=== PATIENT | female | born 1965 | race Caucasian/White ===

== ENCOUNTER 2017-06-19 13:15 | Emergency (ER) | payer OTHER ==
--- OUTSIDE RECORDS SUMMARY | 2017-06-19 14:42 | XMS REPORT ---
:1965 External Reference #:[id number] Author Organization [facility] Address [address] [place] [address] Phone [phone] Care Team Providers Name Role Lavonne Novoa MD Primary Care Physician Unavailable Payers Type Date Identification Numbers Payment Provider Subscriber Health Maintenance Policy Number: [id number] [place] Plan Claims [employer] Organization (HMO) PayID: [id number] [address] [place] [address] Problems Date Description Provider Status Onset: 11/22/2010 Hypothyroidism (Aquired) Lavonne Wilks MD Active Onset: 11/22/2010 Tobacco user Lavonne Wilks MD Active Onset: 08/12/2011 Infestation by Sarcoptes scabiei sukhdeep hominis Lavonne Wilks MD Active Onset: 11/05/2011 Disorder of skin Lavnone Wilks MD Active Onset: 05/30/2014 Candidiasis of mouth Lavonne Wilks MD Active Onset: 10/30/2014 Intra-abdominal and pelvic swelling, mass and Lavonne Wilks MD Active lump Family History Date Family Member(s) Problem(s) Comments Father due to Natural Causes () Father of melanoma invading thecolon and resulting in colon cancer..tx. by dr. nunez Mother copd,cardiomyopathy Social History Type Date Description Comments Cigarette Use Current Cigarette Smoker 1 1/2 Packs Daily ETOH Use Occasionally consumes beer Smoking Patient is a current smoker, smokes every day Allergies, Adverse Reactions, Alerts Date Description Reaction Status Severity Comments 03/05/2009 NKDA active Medications Medication Date Status Form Strength Qnty SIG Indications Ordering Provider [place] Nasal 03/03/ Active Solution 0.65% 66ml spray Lavonne Kent 2016 twice MD Lashaun daily to each nare Synthroid 06/17/ Active Tablets 150mcg 90tab 1 by Lavonne 2013 s mouth MD Lashaun every day on an empty stomach Ventolin HFA 02/03/ Active Aerosol 108(90Base 1unit 2 puff Elyn 2012 ) mcg/Act s four MD Lashaun times a day as needed Advair Diskus 12/09/ Active Aerosol 500-50mcg/ 3unit 1 puff Lavonne 2012 Dose s twice a MD Lashaun day Albuterol 12/09/ Active Nebulizer (2.5mg/3ML 75ml as Elyn Sulfate 2012 ) 0.083% gume Wilks MD four times a day prn. Nebulizer 12/09/ Active Misc 1unit as Elyn 2012 s MD yuriy Barrientos copd Nebulizer 12/09/ Active Device 2unit as Elyn Cup/Tubing 2012 s drlatha Wilks MD dx 496 Azithromycin 03/03/ Hx Tablets 500mg 5tabs 1 by Lavonne 2016 - mouth Ring, 06/10/ every day 2017 Levaquin 04/02/ Hx Tablets 500mg 10tab 1 by Lavonne 2015 - s mouth Ring, 07/22/ every day 2016 Prednisone 04/02/ Hx Tablets 20mg 5tabs 1 by Lavonne 2015 - mouth Ring, 07/22/ every day 2016 Nystatin 03/06/ Hx Suspension [id number] 240ml 1 Lavonne 2013 - /ML teaspoon MD Lashaun 04/02/ four 2016 times a day swish and swollow Levofloxacin 12/09/ Hx Tablets 500mg 10tab tab 1 po Lavonne 2012 - s q day MD Lashaun 2012 Prednisone 12/09/ Hx Tablets 20mg 5tabs 1 po qd Lavonne 2012 - Ring, 2012 Theophylline CR 12/09/ Hx Tablets ER 100mg 60tab Tab 1 PO Lavonne 2012 - 12HR s bid Lashaun, 2012 Nystatin/Triamc 11/04/ Hx Cream [id number] 30gm apply to Lavonne inolone 2012 - Unit/GM-% affected Lashaun, 12/15/ area bid 2012 prn Diflucan 11/04/ Hx Tablets 200mg 5tabs tab 1 po Ygyn 2011 - q day for Ring, 12/15/ 5 days 2012 Triamcinolone 08/12/ Hx Ointment 0.5% 60gm apply to Lavonne Acetonide 2012 - affected Ring, 11/04/ area bid 2011 Triamcinolone 08/11/ Hx Paste 0.1% 15gm apply to Elyn In Orabase 2012 - affected Ring, 08/12/ area tid 2011 Vivelle-Dot 12/16/ Hx Patches 0.05mg/24H 24uni apply 1 Lavonne 2010 - R ts patch MD Lashaun twice 2011 weekly Levaquin 11/22/ Hx Tablets 500mg 10tab 1 po qd Elyn 2010 - s Ring, 2011 Estraderm 09/26/ Hx Patches 0.05mg/24H 24uni apply 1 Lavonne 2010 - R ts patch Ring, twice 2010 weekly Venlafaxine HCL 08/12/ Hx Caps ER 24HR 37.5mg 90cap tab 1 po Elyn ER 2010 - s q day Lashaun, 2010 Amoxicillin 03/04/ Hx Tablets 500mg 30tab 1 po tid Lavonne 2009 - s MD Lashaun 2010 Lexapro 12/10/ Hx Tablets 10mg 90tab 1 po qd Lavonne 2010 - s MD Lashaun 2010 Estraderm 12/10/ Hx Patches 0.05mg/24H 24uni apply 1 Lavonne 2009 - R ts patch RingMD 2010 weekly Vitamin D-3 12/10/ Hx Tablets 2000Unit daily otc Ygyn Super Strength 2010 - RingMD 2015 Vitamin D-3 12/10/ Hx Tablets 2000Unit daily otc Elyn Super Strength 2010 - RingMD 2015 Amoxicillin 06/14/ Hx Capsules 500mg 30cap 1 po tid Lavonne 2010 - s x 10 days MD Lashaun 2009 Synthroid 03/05/ Hx Tablets 125mcg 90tab 1 po qd Lavonne 2008 - s MD Lashaun 2013 Immunizations CPT Code Status Date Vaccine Lot # [id number] Given 03/01/2009 Influenza Vaccine Vital Signs Date Vital Result Comment 06/10/2017 BP Systolic 152 mmHg BP Diastolic 80 mmHg Height 68 inches 5'8" Weight 173.00 lb BMI (Body Mass Index) 26.3 kg/m2 03/03/2017 BP Systolic 148 mmHg BP Diastolic 80 mmHg Heart Rate 78 /min Body Temperature 98.3 F Respiratory Rate 18 /min O2 % BldC Oximetry 90 % 01/20/2017 BP Systolic 138 mmHg BP Diastolic 70 mmHg Heart Rate 64 /min Respiratory Rate 20 /min Weight 172.00 lb 07/22/2016 BP Systolic 140 mmHg BP Diastolic 90 mmHg Height 68 inches 5'8" Weight 177.00 lb BMI (Body Mass Index) 26.9 kg/m2 04/02/2016 BP Systolic 142 mmHg BP Diastolic 78 mmHg Body Temperature 97.9 F 01/07/2016 BP Systolic 134 mmHg BP Diastolic 80 mmHg Height 68 inches 5'8" Weight 181.00 lb BMI (Body Mass Index) 27.5 kg/m2 05/17/2015 BP Systolic 164 mmHg BP Diastolic 90 mmHg Height 68 inches 5'8" Weight 197.00 lb BMI (Body Mass Index) 30.0 kg/m2 11/02/2014 BP Systolic 164 mmHg BP Diastolic 80 mmHg 10/30/2014 BP Systolic 138 mmHg BP Diastolic 80 mmHg 10/17/2014 BP Systolic 140 mmHg BP Diastolic 90 mmHg Height 68 inches 5'8" Weight 194.00 lb BMI (Body Mass Index) 29.5 kg/m2 05/30/2014 BP Systolic 132 mmHg BP Diastolic 80 mmHg 03/06/2014 BP Systolic 142 mmHg BP Diastolic 74 mmHg Height 68 inches 5'8" Weight 195.00 lb BMI (Body Mass Index) 29.6 kg/m2 08/09/2013 BP Systolic 132 mmHg BP Diastolic 90 mmHg Height 68 inches 5'8" Weight 198.00 lb BMI (Body Mass Index) 30.1 kg/m2 06/28/2013 BP Systolic 140 mmHg BP Diastolic 80 mmHg Height 68 inches 5'8" Weight 200.00 lb BMI (Body Mass Index) 30.4 kg/m2 12/15/2012 BP Systolic 120 mmHg BP Diastolic 80 mmHg 12/09/2012 BP Systolic 140 mmHg BP Diastolic 9 mmHg Body Temperature 98.7 F 11/05/2011 BP Systolic 130 mmHg BP Diastolic 74 mmHg Height 68 inches 5'8" Weight 181.00 lb BMI (Body Mass Index) 27.5 kg/m2 11/22/2010 BP Systolic 138 mmHg BP Diastolic 88 mmHg Height 68 inches 5'8" Weight 182.00 lb BMI (Body Mass Index) 27.7 kg/m2 08/12/2010 BP Systolic 128 mmHg BP Diastolic 86 mmHg Weight 185.00 lb 03/04/2010 BP Systolic 120 mmHg BP Diastolic 72 mmHg Weight 186.00 lb 12/10/2009 BP Systolic 132 mmHg BP Diastolic 84 mmHg Weight 179.00 lb 06/14/2009 BP Systolic 140 mmHg BP Diastolic 80 mmHg Body Temperature 99.0 F Weight 174.00 lb 04/09/2009 BP Systolic 130 mmHg BP Diastolic 90 mmHg Weight 184.00 lb 03/05/2009 BP Systolic 150 mmHg BP Diastolic 90 mmHg Weight 182.00 lb Results Test Date Test Result H/L Range Note Laboratory test finding 01/21/2017 BUN 11 mg/dL 7-18 Creatinine 0.8 mg/dL 0.6-1.3 Laboratory test finding 01/14/2017 Thyroid Stim Hormone 0.99 uIU/mL 0.30- 4.20 1 Free T4 1.19 ng/dL 0.76-1.46 1 Laboratory test finding 07/17/2016 Thyroid Stim Hormone 1.50 uIU/mL 0.30- 4.20 2 Free T4 1.11 ng/dL 0.76-1.46 2 CBC W/ Diff & PLT 07/17/2016 White Blood Count 4.7 K/uL 3.1-10.7 2 Red Blood Count 4.84 M/uL 3.90-5.40 2 Hemoglobin 15.8 gm/dL 11.6-15.8 2 Hematocrit 45.7 % 36.0-46.1 2 Mean Cell Volume 94.4 fl 80.9-99.0 2 Mean Corpuscular HGB 32.6 pg 25.9-32.7 2 Mean Corpuscular HGB Conc 34.6 g/dL High 30.8-34.3 2 Platelet Count 277 K/uL 150-400 2 Red Cell Distri Width SD 42.3 fl 3-47 2 Red Cell Distri Width %CV 12.5 % 11.7-14.4 2 Mean Platelet Volume 11.3 fL 8.9-12.4 2 Neut% 51.4 % 40.4-72.8 2 Lymph % 31.1 % 20.0-42.0 2 Kay % 7.8 % 4.3-13.2 2 Eo% 9.1 % High 0.0-6.6 2 Bas% 0.6 % 0.0-1.1 2 Neut# 2.43 K/uL 1.8-7.0 2 Lymph # 1.47 K/uL 1.0-4.0 2 Kay # 0.37 K/uL 0.3-0.9 2 Eos # 0.43 K/uL 0.0-0.5 2 Baso # 0.03 K/uL 0.0-0.1 2 Basic Metabolic Panel 07/17/2016 Glucose 87 mg/dL 74-106 2 BUN 11 mg/dL 7-18 2 Creatinine 0.8 mg/dL 0.6-1.3 2 Glom Filtration Rate, Estimate >60 mL/min >60 2 If >60 mL/min >60 2, 3 BUN/Creat 13.7 ratio 2 Sodium 142 mmol/L 136-145 2 Potassium 4.3 mmol/L 3.5-5.1 2 Chloride 107 mmol/L 98-107 2 Carbon Dioxide 28 mmol/L 21-32 2 Anion Gap 7 mEq/L Low 8-16 2 Calcium 8.5 mg/dL 8.5-10.1 2 CBC W/Automated Diff 12/27/2015 White Blood Count 5.6 K/uL 3.1-10.7 Red Blood Count 5.27 M/uL 3.90-5.40 Hemoglobin 16.6 gm/dL High 11.6-15.8 Hematocrit 49.2 % High 36.0-46.1 Mean Cell Volume 93.4 fl 80.9-99.0 Mean Corpuscular HGB 31.5 pg 25.9-32.7 Mean Corpuscular HGB Conc 33.7 g/dL 30.8-34.3 Platelet Count 227 K/uL 155-360 Red Cell Distri Width SD 43.7 fl 3-47 Red Cell Distri Width %CV 13.0 % 11.7-14.4 Mean Platelet Volume 11.7 fL 8.9-12.4 Neut% 62.2 % 40.4-72.8 Lymph % 24.0 % 17.0-46.1 Kay % 9.5 % 4.3-13.2 Eo% 3.6 % 0.0-6.6 Bas% 0.7 % 0.0-1.1 Neut# 3.45 K/uL 1.8-7.0 Lymph # 1.33 K/uL Low 1.8-7.0 Kay # 0.53 K/uL 0.3-0.9 Eos # 0.20 K/uL 0.0-0.5 Baso # 0.04 K/uL 0.0-0.1 Liver Function Tests 12/27/2015 Total Protein 7.3 g/dL 6.4-8.2 Albumin 3.6 g/dL 3.4-5.0 Globulin 3.7 g/dL 1.9-4.3 Alb/Glob 1.0 ratio Bilirubin,Total 0.6 mg/dL 0.2-1.0 Bilirubin,Direct 0.2 mg/dL 0.0-0.2 Bilirubin,Indirect 0.4 mg/dL 0.0-0.9 Sgot/Ast 18 U/L 15-37 SGPT/Alt 32 U/L 12-78 Alkaline Phosphatase 74 U/L 45-117 Comprehensive Metabolic Panel 12/27/2015 Glucose 91 mg/dL 74-106 BUN 8 mg/dL 7-18 Creatinine 0.8 mg/dL 0.6-1.3 Glom Filtration Rate, Estimate >60 mL/min >60 If >60 mL/min >60 4 BUN/Creat 10.0 ratio Sodium 142 mmol/L 136-145 Potassium 4.2 mmol/L 3.5-5.1 Chloride 108 mmol/L High 98-107 Carbon Dioxide 29 mmol/L 21-32 Anion Gap 5 mEq/L Low 8-16 Calcium 8.6 mg/dL 8.5-10.1 Total Protein 7.3 g/dL 6.4-8.2 Albumin 3.6 g/dL 3.4-5.0 Globulin 3.7 g/dL 1.9-4.3 Alb/Glob 1.0 ratio Bilirubin,Total 0.6 mg/dL 0.2-1.0 Sgot/Ast 18 U/L 15-37 SGPT/Alt 32 U/L 12-78 Alkaline Phosphatase 74 U/L 45-117 LDL Cholesterol Profile 12/27/2015 Cholesterol 177 mg/dL <200 5 Triglycerides 55 mg/dL <150 6 HDL Cholesterol 63 mg/dL >40 7 LDL-Cholesterol 103 mg/dL < 100 8 Laboratory test finding 12/27/2015 Thyroid Stim Hormone 0.40 uIU/mL 0.30- 4.20 Free T4 1.17 ng/dL 0.76-1.46 Laboratory test finding 07/21/2015 Wound/Misc Culture-Gram SEE RESULT BELOW 9 Stain Viral Culture Respiratory See Comment 10 Comprehensive Metabolic Panel 09/26/2014 Glucose 105 mg/dL 74-106 BUN 10 mg/dL 7-18 Creatinine 0.9 mg/dL 0.6-1.3 Glom Filtration Rate, Estimate >60 mL/min >60 If >60 mL/min >60 11 BUN/Creat 11.1 ratio Sodium 138 mmol/L 136-145 Potassium 4.6 mmol/L 3.5-5.1 Chloride 104 mmol/L 98-107 Carbon Dioxide 30 mmol/L 21-32 Anion Gap 4 mEq/L Low 8-16 Calcium 9.3 mg/dL 8.5-10.1 Total Protein 7.2 g/dL 6.4-8.2 Albumin 3.6 g/dL 3.4-5.0 Globulin 3.6 g/dL 1.9-4.3 Alb/Glob 1.0 ratio Bilirubin,Total 0.2 mg/dL 0.2-1.0 Sgot/Ast 15 U/L 15-37 SGPT/Alt 24 U/L 12-78 Alkaline Phosphatase 71 U/L 45-117 LDL Cholesterol Profile 09/26/2014 Cholesterol 184 mg/dL < 200 12 Triglycerides 63 mg/dL < 150 13 HDL Cholesterol 66 mg/dL > 40 14 LDL-Cholesterol 105 mg/dL < 100 15 CBS W/Automated Diff 09/26/2014 White Blood Count 5.7 K/uL 3.1-10.7 Red Blood Count 4.92 M/uL 3.90-5.40 Hemoglobin 15.6 gm/dL 11.6-15.8 Hematocrit 46.7 % High 36.0-46.1 Mean Cell Volume 94.9 fl 80.9-99.0 Mean Corpuscular HGB 31.7 pg 25.9-32.7 Mean Corpuscular HGB Conc 33.4 g/dL 30.8-34.3 Platelet Count 263 K/uL 155-360 Red Cell Distri Width SD 44.1 fl 3-47 Red Cell Distri Width %CV 13.1 % 11.7-14.4 Mean Platelet Volume 11.3 fL 8.9-12.4 Neut% 62.3 % 40.4-72.8 Lymph % 25.3 % 17.0-46.1 Kay % 7.9 % 4.3-13.2 Eo% 4.0 % 0.0-6.6 Bas% 0.5 % 0.0-1.1 Neut# 3.55 K/uL 1.0-7.0 Lymph # 1.44 K/uL Low 1.8-7.0 Kay # 0.45 K/uL 0.3-0.9 Eos # 0.23 K/uL 0.0-0.5 Baso # 0.03 K/uL 0.0-0.1 TSH+Free T4 ([place] & 09/26/2014 Thyroid Stim Hormone 0.47 uIU/mL 0.36-3.74 [facility]) Free T4 1.17 ng/dL 0.76-1.46 Laboratory test finding 09/26/2014 Bilirubin,Direct < 0.1 mg/dL 0.0- 0.2 Comp Metabolic Panel 08/07/2014 Sodium 136 mmol/L 133-145 Potassium 4.9 mmol/L 3.5-5.0 Chloride 103 mmol/L 101-111 Co2 Carbon Dioxide 29 mmol/L 22-32 Anion Gap 4 mmol/L 2-11 Glucose 92 mg/dL 70-100 Blood Urea Nitrogen 12 mg/dL 6-24 Creatinine 0.76 mg/dL 0.51-0.95 BUN/Creatinine Ratio 15.8 8-20 Calcium 9.9 mg/dL 8.6-10.3 Total Protein 6.9 g/dL 6.4-8.9 Albumin 4.3 g/dL 3.2-5.2 Globulin 2.6 g/dL 2-4 Albumin/Globulin Ratio 1.7 1-3 Total Bilirubin 0.50 mg/dL 0.2-1.0 Alkaline Phosphatase 66 U/L 34-104 Alt 21 U/L 7-52 Ast 20 U/L 13-39 Egfr Non- 80.2 >60 Egfr 103.2 >60 16 Laboratory test finding 08/07/2014 C Reactive Protein 3.09 mg/L < 5.00 17 CBC Auto Diff 08/07/2014 White Blood Count 7.3 10^3/uL 4.8-10.8 Red Blood Count 4.86 10^6/uL 4.0-5.4 Hemoglobin 15.9 g/dL 12.0-16.0 Hematocrit 47 % 35-47 Mean Corpuscular Volume 97 fL 80-97 Mean Corpuscular Hemoglobin 33 pg High 27-31 Mean Corpuscular HGB Conc 34 g/dL 31-36 Red Cell Distribution Width 13 % 10.5-15 Platelet Count 278 10^3/uL 150-450 Mean Platelet Volume 10 um3 7.4-10.4 Abs Neutrophils 4.7 10^3/uL 1.5-7.7 Abs Lymphocytes 1.7 10^3/uL 1.0-4.8 Abs Monocytes 0.5 10^3/uL 0-0.8 Abs Eosinophils 0.3 10^3/uL 0-0.6 Abs Basophils 0.1 10^3/uL 0-0.2 Abs Nucleated RBC 0 10^3/uL Granulocyte % 65.1 % 38-83 Lymphocyte % 22.9 % Low 25-47 Monocyte % 7.1 % 1-9 Eosinophil % 4.2 % 0-6 Basophil % 0.7 % 0-2 Nucleated Red Blood Cells % 0.1 Laboratory test finding 08/07/2014 Erythrocyte Sed Rate 15 mm/Hr 0-30 Radha (Anti-Nuclear AB) Screen Negative Negative Laboratory test finding 01/05/2014 Polyp Colon And/Or Rectum See Note 18 CBC W/ Diff & PLT 08/03/2013 White Blood Count 6.8 K/uL 3.1-10.7 Red Blood Count 5.18 M/uL 3.90-5.40 Hemoglobin 16.5 gm/dL High 11.6-15.8 Hematocrit 48.2 % High 36.0-46.1 Mean Cell Volume 93.1 fl 80.9-99.0 Mean Corpuscular HGB 31.9 pg 25.9-32.7 Mean Corpuscular HGB Conc 34.2 g/dL 30.8-34.3 Platelet Count 260 K/uL 155-360 Red Cell Distri Width SD 43.0 fl 3-47 Red Cell Distri Width %CV 12.7 % 11.7-14.4 Mean Platelet Volume 10.7 fL 8.9-12.4 Neut% 62.8 % 40.4-72.8 Lymph % 24.3 % 17.0-46.1 Kay % 7.2 % 4.3-13.2 Eo% 5.1 % 0.0-6.6 Bas% 0.6 % 0.0-1.1 Neut# 4.30 K/uL 1.0-7.0 Lymph # 1.66 K/uL 0.8-3.4 Kay # 0.49 K/uL 0.3-0.9 Eos # 0.35 K/uL 0.0-0.5 Baso # 0.04 K/uL 0.0-0.1 LDL Cholesterol Profile 08/03/2013 Cholesterol 211 mg/dL High 120-200 Triglycerides 67 mg/dL 16-231 HDL Cholesterol 82 mg/dL 29-83 LDL-Cholesterol 116 mg/dL 62-185 Laboratory test finding 08/03/2013 Liver Function Tests See Note 19 Vitamin D,25-Hydroxy 10.7 ng/mL Low 30.0-100.0 20 Comprehensive Metabolic Panel 08/03/2013 Glucose 85 mg/dL 76-115 BUN 12 mg/dL 5-23 Creatinine 0.9 mg/dL 0.5-1.4 Glom Filtration Rate, Estimate >60 mL/min >60 If >60 mL/min >60 21 BUN/Creat 13.3 ratio Sodium 140 mmol/L 136-145 Potassium 4.8 mmol/L 3.5-5.1 Chloride 104 mmol/L 98-107 Carbon Dioxide 29 mEq/L 18-29 Anion Gap 12 mEq/L 8-16 Calcium 9.3 mg/dL 8.5-10.1 Total Protein 7.7 g/dL 6.3-8.0 Albumin 4.0 g/dL 3.5-5.0 Globulin 3.7 g/dL 1.9-4.3 Alb/Glob 1.1 ratio Bilirubin,Total 0.4 mg/dL 0.2-1.2 Sgot/Ast 18 U/L 16-40 SGPT/Alt 27 U/L Low 30-65 Alkaline Phosphatase 76 U/L 50-136 Laboratory test finding 08/03/2013 Thyroxine (T4) See Note 22 Thyroid Stim Hormone 1.24 uIU/mL 0.49-4.67 23 Bilirubin,Direct 0.1 mg/dL 0.1-0.4 24 Free T4 1.05 ng/dL 0.71-1.85 25 Basic Metabolic Panel 06/16/2013 Glucose 91 mg/dL 76-115 BUN 13 mg/dL 5-23 Creatinine 1.0 mg/dL 0.5-1.4 Glom Filtration Rate, Estimate >60 mL/min >60 If >60 mL/min >60 26 BUN/Creat 13.0 ratio Sodium 137 mmol/L 136-145 Potassium 4.5 mmol/L 3.5-5.1 Chloride 103 mmol/L 98-107 Carbon Dioxide 30 mEq/L High 18-29 Anion Gap 9 mEq/L 8-16 Calcium 9.2 mg/dL 8.5-10.1 CBC W/ Diff & PLT 06/16/2013 White Blood Count 6.1 K/uL 3.1-10.7 Red Blood Count 4.93 M/uL 3.90-5.40 Hemoglobin 16.0 gm/dL High 11.6-15.8 Hematocrit 45.8 % 36.0-46.1 Mean Cell Volume 92.9 fl 80.9-99.0 Mean Corpuscular HGB 32.5 pg 25.9-32.7 Mean Corpuscular HGB Conc 34.9 g/dL High 30.8-34.3 Platelet Count 301 K/uL 155-360 Red Cell Distri Width SD 45.1 fl 3-47 Red Cell Distri Width %CV 13.5 % 11.7-14.4 Mean Platelet Volume 11.2 fL 8.9-12.4 Neut% 60.3 % 40.4-72.8 Lymph % 23.9 % 17.0-46.1 Kay % 8.7 % 4.3-13.2 Eo% 6.3 % 0.0-6.6 Bas% 0.8 % 0.0-1.1 Neut# 3.65 K/uL 1.0-7.0 Lymph # 1.45 K/uL 0.8-3.4 Kay # 0.53 K/uL 0.3-0.9 Eos # 0.38 K/uL 0.0-0.5 Baso # 0.05 K/uL 0.0-0.1 Laboratory test finding 06/16/2013 Thyroid Stim Hormone 21.50 uIU/mL High 0.49-4.67 Free T4 0.78 ng/dL 0.71-1.85 Basic Metabolic Panel 05/03/2012 Glucose 88 mg/dL 76-115 BUN 16 mg/dL 5-23 Creatinine 0.9 mg/dL 0.5-1.4 Glom Filtration Rate, Estimate >60 mL/min >60 If >60 mL/min >60 27 BUN/Creat 17.7 ratio Sodium 140 mmol/L 136-145 Potassium 4.4 mmol/L 3.5-5.1 Chloride 106 mmol/L 98-107 Carbon Dioxide 29 mEq/L 18-29 Anion Gap 9 mEq/L 8-16 Calcium 9.0 mg/dL 8.5-10.1 CBS W/Automated Diff 05/03/2012 White Blood Count 6.6 K/uL 3.1-10.7 Red Blood Count 4.66 M/uL 3.90-5.40 Hemoglobin 14.9 gm/dL 11.6-15.8 Hematocrit 43.4 % 36.0-46.1 Mean Cell Volume 93.1 fl 80.9-99.0 Mean Corpuscular HGB 32.0 pg 25.9-32.7 Mean Corpuscular HGB Conc 34.3 g/dL 30.8-34.3 Platelet Count 276 K/uL 155-360 Red Cell Distri Width SD 44.0 fl 3-47 Red Cell Distri Width %CV 13.2 % 11.7-14.4 Mean Platelet Volume 11.3 fL 8.9-12.4 Neut% 56.9 % 40.4-72.8 Lymph % 24.9 % 17.0-46.1 Kay % 6.7 % 4.3-13.2 Eo% 10.7 % High 0.0-6.6 Bas% 0.8 % 0.0-1.1 Neut# 3.73 K/uL 1.0-7.0 Lymph # 1.63 K/uL 0.8-3.4 Kay # 0.44 K/uL 0.3-0.9 Eos # 0.70 K/uL High 0.0-0.5 Baso # 0.05 K/uL 0.0-0.1 TSH+Free T4 ([place] 05/03/2012 Thyroid Stim Hormone 5.41 uIU/mL High 0.49-4.67 & [facility]) Free T4 1.16 ng/dL 0.71-1.85 Laboratory test finding 06/05/2010 Thyroid Stim Hormone 6.15 uIU/mL High 0.49-4.67 28 Free T3 2.07 pg/mL 1.45-3.48 29 Free T4 1.17 ng/dL 0.71-1.85 30 CBC 06/05/2010 White Blood Count 8.2 K/uL 3.1-10.7 Red Blood Count 4.86 M/uL 3.90-5.40 Hemoglobin 15.6 gm/dL 11.6-15.8 Hematocrit 46.2 % High 36.0-46.1 Mean Cell Volume 95.1 fl 80.9-99.0 Mean Corpuscular HGB 32.1 pg 25.9-32.7 Mean Corpuscular HGB Conc 33.8 g/dL 30.8-34.3 Platelet Count 270 K/uL 155-360 Red Cell Distri Width %CV 12.9 % 11.7-14.4 Mean Platelet Volume 11.1 fL 8.9-12.4 Laboratory test finding 06/05/2010 Vitamin D,25-Hydroxy 15.3 ng/mL Low 32.0-100.0 31 LDL Cholesterol Profile 06/05/2010 Cholesterol 200 mg/dL 120-200 Triglycerides 57 mg/dL 0-210 HDL Cholesterol 79 mg/dL 32-96 LDL-Cholesterol 110 mg/dL 62-185 Comprehensive Metabolic Panel 06/05/2010 Glucose 94 mg/dL 76-115 BUN 9 mg/dL 5-23 Creatinine 0.8 mg/dL 0.5-1.4 Glom Filtration Rate, Estimate >60 mL/min >60 If >60 mL/min >60 32 BUN/Creat 11.2 Sodium 136 mEq/L 136-145 Potassium 4.3 mEq/L 3.5-5.1 Chloride 99 mEq/L 98-107 Carbon Dioxide 29 mEq/L 21-32 Anion Gap 12 mEq/L 8-16 Calcium 8.6 mg/dL 8.5-10.1 Total Protein 7.9 g/dL 6.3-8.0 Albumin 4.1 g/dL 3.5-5.0 Globulin 3.8 gm/dL 1.9-4.3 Alb/Glob 1.1 Bilirubin,Total 0.4 mg/dL 0.2-1.2 Sgot/Ast 18 U/L 16-40 SGPT/Alt 35 U/L 30-65 Alkaline Phosphatase 114 U/L 50-136 Liver Function Tests 06/05/2010 Total Protein 7.9 g/dL 6.3-8.0 Albumin 4.1 g/dL 3.5-5.0 Bilirubin,Total 0.4 mg/dL 0.2-1.2 Bilirubin,Direct 0.1 mg/dL 0.1-0.4 Bilirubin,Indirect 0.3 mg/dL 0.0-0.9 Sgot/Ast 18 U/L 16-40 SGPT/Alt 35 U/L 30-65 Alkaline Phosphatase 114 U/L 50-136 Globulin 3.8 gm/dL 1.9-4.3 Alb/Glob 1.1 Laboratory test finding 06/14/2009 Urine Culture See Note 33 TSH+Free T4 ([place] 06/14/2009 Thyroid Stim Hormone 5.52 uIU/mL High 0.49-4.67 & [facility]) Free T4 1.24 ng/dL 0.71-1.85 Laboratory test finding 06/14/2009 Free T3 2.32 pg/mL 1.45-3.48 CBC 06/14/2009 White Blood Count 8.1 K/uL 3.1-10.7 Red Blood Count 4.32 M/uL 3.90-5.40 Hemoglobin 12.7 gm/dL 11.6-15.8 Hematocrit 38.1 % 36.0-46.1 Mean Cell Volume 88.2 fl 80.9-99.0 Mean Corpuscular HGB 29.4 pg 25.9-32.7 Mean Corpuscular HGB Conc 33.3 g/dL 30.8-34.3 Platelet Count 364 K/uL High 155-360 Red Cell Distri Width %CV 15.2 % High 11.7-14.4 Mean Platelet Volume 10.7 fL 8.9-12.4 CBC 05/13/2009 White Blood Count 7.9 K/uL 3.1-10.7 Red Blood Count 2.87 M/uL Low 3.90-5.40 Hemoglobin 8.7 gm/dL Low 11.6-15.8 Hematocrit 26.5 % Low 36.0-46.1 Mean Cell Volume 92.3 fl 80.9-99.0 Mean Corpuscular HGB 30.3 pg 25.9-32.7 Mean Corpuscular HGB Conc 32.8 g/dL 30.8-34.3 Platelet Count 723 K/uL High 155-360 Red Cell Distri Width %CV 14.1 % 11.7-14.4 Mean Platelet Volume 9.7 fL 8.9-12.4 Differential-WBC 05/13/2009 Total Cells Counted 100 #CELLS Band% 1 % 0-8 Neutrophils% 73 % 33-73 Lymph% 10 % Low 17-56 Monocyte% 4 % 0-10 Eosinophil% 10 % High 0-5 Basophil% 2 % 0-2 Platelet Estimate MARKED INCREASE RBC Morphology NORMAL Hypochromia 1+ Basic Metabolic Panel 05/13/2009 Glucose 87 mg/dL 76-115 BUN 4 mg/dL Low 5-23 Creatinine 0.7 mg/dL 0.5-1.4 Glom Filtration Rate, Estimate >60 mL/min >60 If >60 mL/min >60 34 BUN/Creat 5.7 Sodium 142 mEq/L 136-145 Potassium 3.2 mEq/L Low 3.5-5.1 Chloride 105 mEq/L 98-107 Carbon Dioxide 30 mEq/L 21-32 Anion Gap 10 mEq/L 8-16 Calcium 8.9 mg/dL 8.5-10.1 Laboratory test 05/12/2009 Type And Screen Canceled By Lab 35 finding Anaerobic Culture W/ 05/12/2009 Gram Stain; Anaerobic <see comment> 36, 37 GR Stain Specimen Anaerobic Culture <see comment> 36, 38 Routine Culture W/ Gram 05/12/2009 Gram Stain GRAM STAIN <SEE 36, 39 Stain NOTE> Aerobic Culture Organism 1 <SEE NOTE> 36, 40 Type And Screen 05/12/2009 Patient Blood Type B POS Antibody Screen NEGATIVE Laboratory test finding 05/12/2009 CBS W/Automated Diff Canceled By Lab 41 Blood Culture 05/12/2009 Blood Culture Aerobic See Note 42, 43 Blood Culture Anaerobic See Note 42, 44 Laboratory test 05/12/2009 Blood Culture Canceled By Lab 42, 45 finding Laboratory test 05/02/2009 C. Difficile Toxin <see 46 finding A/B comment> CBC 05/01/2009 White Blood Count 9.3 K/uL 3.1-10.7 Red Blood Count 3.15 M/uL Low 3.90-5.40 Hemoglobin 9.6 gm/dL Low 11.6-15.8 Hematocrit 29.9 % Low 36.0-46.1 Mean Cell Volume 94.9 fl 80.9-99.0 Mean Corpuscular HGB 30.5 pg 25.9-32.7 Mean Corpuscular HGB Conc 32.1 g/dL 30.8-34.3 Platelet Count 268 K/uL 155-360 Red Cell Distri Width %CV 12.6 % 11.7-14.4 Mean Platelet Volume 11.7 fL 8.9-12.4 Laboratory test finding 04/30/2009 Uterus W/Wo FT/Ovary-Fibroid (SEE NOTE) 47 Type And Screen 04/25/2009 Patient Blood Type B POS Antibody Screen NEGATIVE Basic Metabolic Panel 04/25/2009 Glucose 83 mg/dL 76-115 BUN 11 mg/dL 5-23 Creatinine 0.9 mg/dL 0.5-1.4 Glom Filtration Rate, Estimate >60 mL/min >60 If >60 mL/min >60 48 BUN/Creat 12.2 Sodium 135 mEq/L Low 136-145 Potassium 4.0 mEq/L 3.5-5.1 Chloride 104 mEq/L 98-107 Carbon Dioxide 23 mEq/L 21-32 Anion Gap 12 mEq/L 8-16 Calcium 8.8 mg/dL 8.5-10.1 Laboratory test finding 04/25/2009 HCG Serum, Qualitative NEGATIVE Urine Screen Canceled By Lab 49 CBC 04/25/2009 White Blood Count 5.5 K/uL 3.1-10.7 Red Blood Count 3.77 M/uL Low 3.90-5.40 Hemoglobin 12.1 gm/dL 11.6-15.8 Hematocrit 35.5 % Low 36.0-46.1 Mean Cell Volume 94.2 fl 80.9-99.0 Mean Corpuscular HGB 32.1 pg 25.9-32.7 Mean Corpuscular HGB Conc 34.1 g/dL 30.8-34.3 Platelet Count 346 K/uL 155-360 Red Cell Distri Width %CV 12.9 % 11.7-14.4 Mean Platelet Volume 10.9 fL 8.9-12.4 Urinalysis With Microscopic 04/25/2009 Urine Color YELLOW Yellow Urine Clarity CLEAR Clear Urine Glucose - Dipstick NEGATIVE mg/dL Negative Urine Bilirubin - Dipstick NEGATIVE Negative Urine Ketone NEGATIVE mg/dL Negative Urine Specific [place] 1.010 1.010-1.030 Urine Blood MODERATE High Negative Urine PH 5.0 Low 6.5-7.5 Urine Protein - Dipstick NEGATIVE mg/dL Negative Urine Urobilinogen - Dipstick 0.2 E.U./dL 0.2-1.0 Urine Nitrite - Dipstick NEGATIVE Negative Urine Leuk Esterase TRACE High Negative Urine RBC 0-2 rbc/hpf 0-7 Urine WBC 0-2 wbc/hpf 0-7 Urine Epithelial Cells FEW NONESEEN Urine Bacteria VERY FEW NONESEEN Urine Amorph Sediment SMALL Negative Laboratory test finding 04/02/2009 Thyroid Stim Hormone 9.51 uIU/mL High 0.49-4.67 Free T3 1.72 pg/mL 1.45-3.48 Free T4 1.08 ng/dL 0.71-1.85 Basic Metabolic Panel 04/02/2009 Glucose 83 mg/dL 76-115 BUN 6 mg/dL 5-23 Creatinine 0.8 mg/dL 0.5-1.4 Glom Filtration Rate, Estimate >60 mL/min >60 If >60 mL/min >60 50 BUN/Creat 7.5 Sodium 134 mEq/L Low 136-145 Potassium 4.2 mEq/L 3.5-5.1 Chloride 105 mEq/L 98-107 Carbon Dioxide 26 mEq/L 21-32 Anion Gap 7 mEq/L Low 8-16 Calcium 8.8 mg/dL 8.5-10.1 LDL Cholesterol Profile 04/02/2009 Cholesterol 176 mg/dL 120-200 Triglycerides 80 mg/dL 0-210 HDL Cholesterol 54 mg/dL 32-96 LDL-Cholesterol 106 mg/dL 62-185 1 E03.9 2 E03.9 J20.9 I1.9 3 Note: Persistent reduction for 3 months or more in an eGFR <60 mL/min/1.73 m2 defines CKD. Patients with eGFR values >/=60 mL/min/1.73 m2 may also have CKD if evidence of persistent proteinuria is present. The original MDRD equation for estimated GFR is not valid for patients less than 18 years of age. Additional information may be found at www.[email or web address]. 4 Note: Persistent reduction for 3 months or more in an eGFR <60 mL/min/1.73 m2 defines CKD. Patients with eGFR values >/=60 mL/min/1.73 m2 may also have CKD if evidence of persistent proteinuria is present. The original MDRD equation for estimated GFR is not valid for patients less than 18 years of age. Additional information may be found at www.[email or web address]. 5 Reference Guidelines*: Desirable: ........... < 200 mg/dL Borderline High: ..... 200-239 mg/dL High: ................ >=240 mg/dL * The National Cholesterol Education Program (NCEP) 6 Reference Guidelines*: Normal: ............. < 150 mg/dL Borderline High: .... 150-199 mg/dL High: ............... 200-499 mg/dL Very High: .......... > 500 mg/dL * Source: National Cholesterol Education Program (NCEP) 7 Reference Guidelines*: Low HDL: ..... < 40 mg/dL Normal: ..... 40-60 mg/dL Desirable: ... > 60 mg/dL *The National Cholesterol Education Program(NCEP) 8 Reference Guidelines*: Optimal:........... <100 mg/dL Near Optimal....... 100-129 mg/dL Borderline High.... 130-159 mg/dL High............... 160-189 mg/dL Very High.......... >=190 mg/dL * Source: National Cholesterol Education Program (NCEP) 9 SEE RESULT BELOW Name: ROJELIO NEWTON : [address]: Pro Montalvo MD Acct: [id number] Unit: [id number] AGE: 50 Location: [facility] Re07/21/15 SEX: F Status: DEP ER SPEC: [id number] YAO: 07/21/15-1723 [facility] DR: Ami Mcgarry NP REQ: [id number] RECD: 07/22/15 STATUS: MARIAJOSE COX DR: Lavonne Montalvo MD _ SOURCE: MOUTH SPDESC: ORDERED: Culture Stain QUERIES: Specimen Description MOUTH Procedure Result Reported Site Wound/Misc Gram Stain Final 07/22/15- 1436 ML 4+ Epithelial Cells No Neutrophils Observed 4+ Gram Positive Cocci 4+ Gram Positive Bacilli Wound/Misc Culture Final 07/24/15- 1004 ML Organism 1 NORMAL DELORES Quantity 3+ * ML - MAIN LAB ([facility]) . END OF REPORT * ML=Testing performed at Main Lab DEPARTMENT OF PATHOLOGY, [address] [place] [address] Sg Dennis M.D. Director [facility] # [id number] 10 SOURCE: MOUTH, MOUTH SWAB VIRAL CULTURE, RESPIRATORY FINAL No virus isolated. Test Performed by: [place] [address] Silverware Washer: No Amaya II, M.D., Ph.D. 11 Note: Persistent reduction for 3 months or more in an eGFR <60 mL/min/1.73 m2 defines CKD. Patients with eGFR values >/=60 mL/min/1.73 m2 may also have CKD if evidence of persistent proteinuria is present. The original MDRD equation for estimated GFR is not valid for patients less than 18 years of age. Additional information may be found at www.[email or web address]. 12 Reference Guidelines*: Desirable: ........... < 200 mg/dL Borderline High: ..... 200-239 mg/dL High: ................ >=240 mg/dL * The National Cholesterol Education Program (NCEP) 13 Reference Guidelines*: Normal: ............. < 150 mg/dL Borderline High: .... 150-199 mg/dL High: ............... 200-499 mg/dL Very High: .......... > 500 mg/dL * Source: National Cholesterol Education Program (NCEP) 14 Reference Guidelines*: Low HDL: ..... < 40 mg/dL Normal: ..... 40-60 mg/dL Desirable: ... > 60 mg/dL *The National Cholesterol Education Program(NCEP) 15 Reference Guidelines*: Optimal:........... <100 mg/dL Near Optimal....... 100-129 mg/dL Borderline High.... 130-159 mg/dL High............... 160-189 mg/dL Very High.......... >=190 mg/dL * Source: National Cholesterol Education Program (NCEP) 16 Because ethnic data is not always readily available, this report includes an eGFR for both -Americans and non- Americans. The National Kidney Disease Education Program (NKDEP) does not endorse the use of the MDRD equation for patients that are not between the ages of 18 and 70, are , have extremes of body size, muscle mass, or nutritional status, or are non- or non-. According to the National Kidney Foundation, irrespective of diagnosis, the stage of the disease is based on the level of kidney function: Stage Description GFR(mL/min/1.73 m(2)) 1 Kidney damage with normal or decreased GFR 90 2 Kidney damage with mild decrease in GFR 60-89 3 Moderate decrease in GFR 30-59 4 Severe decrease in GFR 15-29 5 Kidney failure <15 (or dialysis) 17 Acute inflammation: >10.00 18 OPERATION/PROCEDURE Colon. DIAGNOSIS: PART 1: "SIGMOID COLON, BIOPSY": COLITIS, MILD TO MODERATE, WITH CRYPTITIS. PART 2: "RECTAL POLYP, BIOPSY": TUBULAR ADENOMA. KEVIN/kwabena 1134 GROSS Part 1; "SIGMOID BIOPSY". The specimen is received in an appropriately labeled container. This contains six rounded hernandez brown colored pieces of soft tissue measuring up to 0.3 cm.; filtered and submitted in toto within a single cassette. Part 2; "RECTAL POLYP". The specimen is received in an appropriately labeled container. This contains one rounded brown colored piece of soft tissue measuring up to 1.1 cm.; filtered and submitted in toto within a single cassette. HW/kwabena MICROSCOPIC Part 1: Sections reveal markedly inflamed colonic mucosa with hemorrhage, and acute and chronic inflammation. Inflammatory cells surround and infiltrate individual glands. The glands are shortened, angularly distorted, with markedly increased crypt mitotic activity. Reactive atypia is seen. Crypt abscesses are not seen. Part 2: Sections show colonic mucosa with tubular glands lined by columnar cells with elongated and hyperchromatic nuclei. PRE OPERATIVE DIAGNOSIS F/H ca colon; bleed REVIEW CODE CODE: I Signed Electronically signed RALPH SOUTH MD 01/09/14 1354 19 08/03/13 LAB.ALL LFT CHANGED TO DBILI 20 Vitamin D deficiency has been defined by the [place] [employer] and an Endocrine Society practice guideline as a level of serum 25-OH vitamin D less than 20 ng/mL (1,2). The Endocrine Society went on to further define vitamin D insufficiency as a level between 21 and 29 ng/mL (2). 1. IOM ([place] [employer]). 2010. Dietary reference intakes for calcium and D. [place]: The National Academies Press. 2. Yen MF, Giorgi NC, Sarah PAUL, et al. Evaluation, treatment, and prevention of vitamin D deficiency: an Endocrine Society clinical practice guideline. JCEM. 2010; 96(7):1911-30. Performed at: RN - [facility] [id number] Underwriting Director: Ann Marie Keen MD, Phone: [phone] 21 Note: Persistent reduction for 3 months or more in an eGFR <60 mL/min/1.73 m2 defines CKD. Patients with eGFR values >/=60 mL/min/1.73 m2 may also have CKD if evidence of persistent proteinuria is present. The original MDRD equation for estimated GFR is not valid for patients less than 18 years of age. Additional information may be found at www.[email or web address]. 22 08/03/13 LAB.ALL T4 WAS SUPPOSED TO BE FT4 23 T4 WAS SUPPOSED TO BE FT4 AND LFT WAS CHANGED TO DBILI 24 T4 WAS SUPPOSED TO BE FT4 AND LFT WAS CHANGED TO DBILI 25 T4 WAS SUPPOSED TO BE FT4 AND LFT WAS CHANGED TO DBILI 26 Note: Persistent reduction for 3 months or more in an eGFR <60 mL/min/1.73 m2 defines CKD. Patients with eGFR values >/=60 mL/min/1.73 m2 may also have CKD if evidence of persistent proteinuria is present. The original MDRD equation for estimated GFR is not valid for patients less than 18 years of age. Additional information may be found at www.[email or web address]. 27 Note: Persistent reduction for 3 months or more in an eGFR <60 mL/min/1.73 m2 defines CKD. Patients with eGFR values >/=60 mL/min/1.73 m2 may also have CKD if evidence of persistent proteinuria is present. The original MDRD equation for estimated GFR is not valid for patients less than 18 years of age. Additional information may be found at [email or web address]. 28 QUERY: @[facility] Pat ID: [id number] QUERY: @[facility] Req #: [id number] QUERY: @[facility] Pat ID: [id number] QUERY: @[facility] Req #: [id number] QUERY: @[facility] Pat ID: [id number] QUERY: @[facility] Req #: [id number] 31 Recent studies consider the lower limit of 32.0 ng/mL to be a threshold for optimal health. Román BEY. J Nutr. 2005 Jul;135(2):317-22. Performed at: RN - [facility] [address] [id number] Underwriting Director: Kartik Leo MD, Phone: [phone] 32 Note: Persistent reduction for 3 months or more in an eGFR <60 mL/min/1.73 m2 defines CKD. Patients with eGFR values >/=60 mL/min/1.73 m2 may also have CKD if evidence of persistent proteinuria is present. The original MDRD equation for estimated GFR is not valid for patients less than 18 years of age. Additional information may be found at www.[email or web address]. 33 COLONY COUNT ! 10,000 - 20,000 CFU/ml Organism 1 ! URETHRAL DELORES 34 Note: Persistent reduction for 3 months or more in an eGFR <60 mL/min/1.73 m2 defines CKD. Patients with eGFR values >/=60 mL/min/1.73 m2 may also have CKD if evidence of persistent proteinuria is present. The original MDRD equation for estimated GFR is not valid for patients less than 18 years of age. Additional information may be found at [email or web address]. 35 CHANGED TO STAT 36 Specimen: [id number] - TESTS: AN, RC COMMENTS TO DEHYDRATOR OPERATOR: ABDOMINAL WALL CULTURE SPECIFY ANTIBIOTIC: UNASYN TEST: AN TEST: RC 37 GRAM STAIN ! FEW WHITE BLOOD CELLS ! FEW GRAM NEGATIVE BACILLI 38 Organism 1 ! BACTEROIDES VULGATUS QUANTITY ! MODERATE RECOMMENDED THERAPY: ! METRONDIAZOLE OR CLINDAMYCIN. 39 GRAM STAIN ! VERY FEW GRAM NEGATIVE BACILLI 40 Organism 1 ! NO PATHOGENS ISOLATED 41 Cancelled via OE: WRONG TEST 42 Specimen: [id number] - TEST: BC SPECIFY ANTIBIOTIC: UNASYN TEST: BC Specimen: [id number] - TEST: BC SPECIFY ANTIBIOTIC: UNASYN TEST: BC Specimen: [id number] - TEST: BC SPECIFY ANTIBIOTIC: UNASYN TEST: BC Specimen: [id number] - TEST: BC SPECIFY ANTIBIOTIC: UNASYN TEST: BC 43 NO GROWTH: FINAL REPORT 44 NO GROWTH: FINAL REPORT 45 SPECIMEN SOURCE: BLOOD SPECIMEN DESC: JUANCARLOS SPECIFY ANTIBIOTIC: UNASYN 46 NEGATIVE FOR C. DIFFICILE TOXIN A/B. CORRELATE RESULTS WITH CLINICAL CONDITION. 47 This is a corrected report. Any previous versions are stored internally and are available if necessary. OPERATION/PROCEDURE Total abdominal hysterectomy with bilateral salpingo-oophorectomy. DIAGNOSIS: UPDATED DIAGNOSIS: TO REFLECT THE EXAMINATION OF OVARIES AND FALLOPIAN TUBES - 05/03/2009 "UTERUS, CERVIX, BILATERAL TUBES AND OVARIES": CERVIX: NO SIGNIFICANT PATHOLOGIC FINDING. ENDOMETRIUM: ATROPHY. SEROSA: ESSENTIALLY NORMAL. MYOMETRIUM: ADENOMYOSIS. LEIOMYOMATA, INTRAMYOMETRIAL, MULTIPLE. OVARIES: NO PATHOLOGIC DIAGNOSIS. FALLOPIAN TUBES: CHRONIC SALPINGITIS. [facility]/clf GROSS Received in a single container additionally labeled, "UTERUS, CERVIX, BILATERAL TUBES AND OVARIES" is a simple hysterectomy specimen that contains only a uterus and cervix, without visible attached ovaries or fallopian tubes weighing 446 grams. Overall, this specimen measures 11.3 cm. in height, 8.0 cm. from cornu to cornu and 8.7 cm. in anterior/posterior dimension. The serosa is smooth, hernandez, with subserosal globular distensions of rubbery nodules consistent with leiomyomata individually measuring up to 8.5 cm. in diameter. The cut surfaces of this leiomyoma are whorled, hernandez- white, nodular without hemorrhage, necrosis nor cystic softening. There number approximately three, and are sharply demarcated from the surrounding myometrium. The endometrium is hernandez smooth, shiny and has been displaced and compressed by the leiomyomas to a thickness GROSS (Continued) less than 0.1 mm. The myometrium otherwise is without focal abnormality. Machine Tool Builder sections are submitted as follows: A1-4=sampling of endocervix and endometrium, B1-B4=sampling of leiomyomata. /clf ADDENDUM: After original sign-out of this case, Dr. Ramesh brought to my attention unexamined pieces left in the container. This addendum addresses this deficiency. There is a cervical cuff, which is separate and measures 4.8 x 3.9 x 2.0 cm. This is smooth, shiny hernandez and unremarkable. No gross lesions, or focal areas of erythema are noted. Machine Tool Builder sections from different portions are submitted in A3 and A4. There are two separate undesignated recognizable ovaries, with mesovarian and terminal fallopian tube. The larger of these measures 7.2 x 3.2 x 2.0 cm. in overall dimension. This has a shiny smooth purple appearance with a dominant unilocular cyst without papillations measuring 1.5 cm. in diameter. The remaining cut surface of the ovary demonstrates smaller cysts, some hemorrhagic, and some with brightly colored orange lining consistent with corpus luteum. A 5.4 cm. long 1.4 cm. in diameter segment of dilated presumed fallopian tube is noted attached to this. The wall is rather ectatic, and customer service representative teller cross-sections of this as well as the ovaries submitted in cassettes designated L1 and L2. The smaller piece measures 4.1 x 2.4 x 2.3 cm. in overall dimensions. There is a terminal grossly recognizable segment of fallopian tube measuring 3.2 x 2.2 x 1.0 cm. in overall dimensions. This has normal appearing fimbria. The cut surface of the ovary has several cysts individually measuring up to 0.5 cm. in diameter. These are simple, lacking papillations or focal abnormalities. Machine Tool Builder sections from these portions are submitted in cassettes designated R1 and R2. WS/clf MICROSCOPIC The endometrium is unremarkable. The sections of myometrium demonstrate deeply situated endometrial glands, and specialized stroma, findings consistent with adenomyosis. There are nodular, well-demarcated islands of whorled bundles of fusiform smooth muscle cells with oval nuclei, in sections taken from the leiomyomata. Mitotic figures, giant cells and anaplasia are absent. Sections of the ovaries demonstrate physiologic cysts, representing a full range of maturation. I do not see evidence of a neoplastic process nor endometriosis. There is chronic salpingitis noted in both, but more marked in one of the fallopian tubes. The other fallopian tube demonstrates a less dilated cross-section and fimbriated end morphology. PRE OPERATIVE DIAGNOSIS Leiomyomata uteri, persistent menorrhagia REVIEW CODE CODE: I NO Rothman MD 05/03/09 48 Note: Persistent reduction for 3 months or more in an eGFR <60 mL/min/1.73 m2 defines CKD. Patients with eGFR values >/=60 mL/min/1.73 m2 may also have CKD if evidence of persistent proteinuria is present. The original MDRD equation for estimated GFR is not valid for patients less than 18 years of age. Additional information may be found at www.[email or web address]. 49 04/25/09 LAB.RAB Deleted by [facility] UACOM 50 Note: Persistent reduction for 3 months or more in an eGFR <60 mL/min/1.73 m2 defines CKD. Patients with eGFR values >/=60 mL/min/1.73 m2 may also have CKD if evidence of persistent proteinuria is present. The original MDRD equation for estimated GFR is not valid for patients less than 18 years of age. Additional information may be found at [email or web address]. Procedures Date CPT Code Description Status 06/23/2016 45800 Non-Invcorrotid/Comp /Bilat Study Completed 06/23/2016 77252 Echocardiography Completed 05/08/2015 75162 Non-Invcorrotid/Comp /Bilat Study Completed 05/08/2015 05931 Echocardiography Completed 08/15/2013 Mammogram Completed 11/28/2010 93687 Bone Density,Vertebral Fracture Completed 11/28/2010 30953 Bone Density Completed 11/28/2010 Bone Mineral Density Test Completed Encounters Type Date Location Provider CPT E/M Dx Office Visit 03/03/2017 10:00a [place] [address] J01.90 R05 J44.9 Office Visit 01/20/2017 10:00a [place] [address] J44.9 E03.9 F17.200 I65.23 I34.0 Office Visit 07/22/2016 9:30a [place] [address] J44.9 E03.9 F17.200 I34.8 Z00.00 Office Visit 04/02/2016 12:00p [place] [address] J20.9 J44.9 Office Visit 01/07/2016 2:00p [place] [address] E03.9 F17.200 I65.23 K13.21 Office Visit 05/17/2015 10:15a [place] [address] E03.9 F17.200 Office Visit 11/02/2014 1:00p [place] [address] 789.09 789.30 GENERAL Office Visit 10/30/2014 9:00a [place] [address] 789.30 Office Visit 10/17/2014 10:45a [place] [address] 244.90 268.9 305.1 V72.2 V72.0 V70.0 424.0 785.1 477.9 789.00 709.90 V76.41 GENERAL Office Visit 05/30/2014 11:00a [place] [address] 112.0 GENERAL Office Visit 03/06/2014 2:15p [place] [address] 244.90 268.9 305.1 562.10 GENERAL Office Visit 08/09/2013 1:30p [place] [address] 244.90 268.9 305.1 709.8 V72.2 V72.0 V70.0 GENERAL Office Visit 06/28/2013 10:00a [place] [address] 244.90 268.9 709.90 733.90 305.1 GENERAL Office Visit 12/15/2012 10:15a [place] [address] 491.21 244.90 GENERAL Office Visit 12/09/2012 12:30p [place] [address] 491.21 244.90 GENERAL Office Visit 11/05/2011 1:00p [place] [address] 305.1 244.90 709.8 GENERAL 133.0 Office Visit 08/12/2011 12:15p [place] [address] 305.1 133.0 GENERAL Office Visit 11/22/2010 10:00a [place] [address] 244.90 305.1 733.90 268.9 461.9 GENERAL Office Visit 08/12/2010 1:15p [place] [address] 244.90 305.1 V72.2 V72.0 V70.0 733.90 268.9 V65.49 569.3 311 GENERAL Office Visit 03/04/2010 2:00p [place] [address] 461.9 244.90 GENERAL Office Visit 12/10/2009 11:00a [place] [address] 305.1 285.9 V88.01 244.90 V72.2 V72.0 268.9 GENERAL Office Visit 06/14/2009 11:15a [place] [address] 244.90 305.1 285.9 V88.01 461.9 GENERAL Office Visit 04/09/2009 11:45a [place] [address] 244.90 305.1 GENERAL Office Visit 03/05/2009 2:45p [place] [address] 244.90 305.1 402.10 272.4 GENERAL Plan of Care Future Appointment(s):08/04/2017 10:00 am - Lavonne Wilks MD at Main [id number] 8:00 am - Nurse at Main Haopkf4207/20/2017 12:00 pm - Ultrasound at Main Office
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
[2017-06-19 15:41] VITALS: BP 175/96
== END 2017-06-19 15:48 | disposition home or self-care (01) ==
LOC: UCCORT 13:15
DX: Z72.0 Tobacco use (principal); T22.112A Burn of first degree of left forearm, initial encounter; T31.0 Burns involving less than 10% of body surface; X12.XXXA Contact with other hot fluids, initial encounter; Y93.89 Activity, other specified; Y92.9 Unspecified place or not applicable
CPT/HCPCS: 16020; 99212; G0463

== ENCOUNTER 2018-04-01 11:28 | Emergency (ER) | payer BC, OTHER ==
[2018-04-01 12:09] VITALS: BP 132/78
--- NOTE | 2018-04-01 12:22 | ED ---
Throat Pain/Nasal Congestion - HPI Summary HPI Summary: 52 yr old female with the complaint of bilateral sinus congestion, pain, post nasal drip, yellow sputum. Coughing. Denies fever chills. She is a smoker. - History of Current Complaint Chief Complaint: UCGeneralIllness Time Seen by Provider: 04/01/18 12:14 - Allergies/Home Medications Allergies/Adverse Reactions: Allergies Allergy/AdvReac Type Severity Reaction Status Date / Time No Known Allergies Allergy Verified 04/01/18 12:09 PMH/Surg Hx/FS Hx/Imm Hx Endocrine/Hematology History: Reports: Hx Thyroid Disease - Hypothyroidism Denies: Hx Diabetes Cardiovascular History: Denies: Hx Hypertension Respiratory History: Denies: Hx Asthma, Hx Chronic Obstructive Pulmonary Disease (COPD) GI History: Denies: Hx Ulcer - Cancer History Hx Chemotherapy: No Hx Radiation Therapy: No - Surgical History Surgery Procedure, Year, and Place: Hysterectomy-complete 2008, [facility] Infectious Disease History: No Infectious Disease History: Denies: Hx Clostridium Difficile, Hx Hepatitis, Hx Human Immunodeficiency Virus (HIV), Hx of Known/Suspected MRSA, Hx Shingles, Hx Tuberculosis, Hx Known/ Suspected VRE, Hx Known/Suspected VRSA, History Other Infectious Disease, Traveled Outside the in Last 30 Days - Family History Known Family History: Positive: Unknown - Social History Lives: With Family Alcohol Use: Occasionally Substance Use Type: Reports: None Smoking Status (MU): Heavy Every Day Tobacco Smoker Type: Cigarettes Amount Used/How Often: 1/2 pack day Length of Time of Smoking/Using Tobacco: started ~ age 14 Have You Smoked in the Last Year: Yes Review of Systems Constitutional: Negative Positive: Nasal Discharge, Other - sinus pressure and pain Positive: Cough All Other Systems Reviewed And Are Negative: Yes Physical Exam Triage Information Reviewed: Yes Vital Signs On Initial Exam: Initial Vitals Temp Pulse Resp BP Pulse Ox 97.7 F 67 18 132/78 98 04/01/18 12:01 04/01/18 12:01 04/01/18 12:01 04/01/18 12:01 04/01/18 12:01 Vital Signs Reviewed: Yes Appearance: Positive: Well-Appearing, No Pain Distress Skin: Positive: Warm, Skin Color Reflects Adequate Perfusion Eyes: Positive: EOMI ENT: Positive: Pharynx normal, Nasal congestion, Nasal drainage, TMs normal, Sinus tenderness Respiratory/Lung Sounds: Positive: Clear to Auscultation, Breath Sounds Present Cardiovascular: Positive: RRR. Negative: Murmur Abdomen Description: Positive: Nontender Musculoskeletal: Positive: Strength/ROM Intact Neurological: Positive: Sensory/Motor Intact, Alert, Oriented to Person Place, Time, CN Intact II-III Psychiatric: Positive: Normal - [place] Coma Scale Best Eye Response: 4 - Spontaneous Best Motor Response: 6 - Obeys Commands Best Verbal Response: 5 - Oriented Coma Scale Total: 15 Diagnostics - Vital Signs Vital Signs Temp Pulse Resp BP Pulse Ox 04/01/18 12:01 97.7 F 67 18 132/78 98 - Laboratory Lab Statement: Any lab studies that have been ordered have been reviewed, and results considered in the medical decision making process. EENT Course/Dx - Course Course Of Treatment: 52 yr old with sinus infection and bronchitis. Rx with Cefdinir and also with albuterol MDI. - Diagnoses Provider Diagnoses: Sinusitis, Bronchitis Discharge - Sign-Out/Discharge Documenting (check all that apply): Patient Departure All imaging exams completed and their final reports reviewed: No Studies - Discharge Plan Condition: Good Disposition: HOME Prescriptions: Albuterol HFA INHALER* [Ventolin HFA Inhaler*] 1 - 2 puff INH Q6H PRN #1 mdi PRN Reason: Cough Cefdinir [Cefdinir 300 MG CAP] 300 mg PO BID #20 capsule predniSONE TAB* [Deltasone 20 MG TAB*] 40 mg PO DAILY #8 tab Patient Education Materials: Sinusitis (ED), Acute Bronchitis (ED) Referrals: Lavonne Wilks MD [Primary Care Provider] - 2 Days - Billing Disposition and Condition Condition: GOOD Disposition: Home
== END 2018-04-01 12:27 | disposition home or self-care (01) ==
LOC: UCCORT 11:28
DX: J32.9 Chronic sinusitis, unspecified (principal); J40 Bronchitis, not specified as acute or chronic; F17.210 Nicotine dependence, cigarettes, uncomplicated
CPT/HCPCS: 99212; G0463